=== PATIENT | male | born 1975 | race Caucasian/White ===

== ENCOUNTER 2018-09-06 10:48 | Day surgery (SDC) | payer OTHER ==
[2018-09-04 14:10] VITALS: BMI 40.1
[~2018-09-06 10:48] MED LIST: LIDOCAINE 1% 20 ML VIAL (10MG/ML) FOR IV START INTRADERMA PRN
[2018-09-06] MEDS: LACTATED RINGERS 1,000 ML IV SCH ×2 (11:43→13:03)
[2018-09-06 11:52] VITALS: TEMP 97.2
[2018-09-06] MEDS ORDERED: LIDOCAINE 1% INJ 10MG/ML (20 ML MDV) ONE (13:05)
[2018-09-06] MEDS ORDERED: PROPOFOL 10 MG/ML 20 ML VIAL IV ONE (13:05)
[2018-09-06 14:01] VITALS: BP 132/86; PULSE 65; RESP 16
--- NOTE | 2018-09-07 06:11 | PCN ---
PROCEDURE NOTE DATE OF SERVICE: 09/06/2018 PROCEDURE: Total colonoscopy. PREOPERATIVE DIAGNOSIS: Screening for neoplasia. POSTOPERATIVE DIAGNOSIS: Exam within normal limits. PREPARATION: Half Lightly prep. SEDATION: Sedation was provided by Anesthesia. BRIEF CLINICAL HISTORY: The patient is a 43-year-old male who is scheduled for this evaluation for screening for neoplasia because of family history of colon cancer in his sister who is 10 years older than him who developed cancer at age 52. The patient has no abdominal complaints, bleeding or anemia. This will be his first colonoscopy. PROCEDURE: With the patient on his left lateral decubitus position and after informed consent and adequate sedation, the perianal area was inspected and it did not show any fissures or fistulas. There were no masses felt on digital rectal examination. The Olympus CF- H190L video colonoscope was then inserted in the rectum in the usual fashion and advanced to the cecum. The mucosa appeared healthy. There was no obvious polyps or tumors or any obvious diverticular disease. I retroflexed the endoscope in the rectum before the endoscope was withdrawn. The patient tolerated the procedure well. PLAN: The patient was reassured. He will follow up with you as planned and I recommended repeat exam in 5 years. MMODL / IJN: [id number] /
== END 2018-09-06 14:03 | disposition home or self-care (01) ==
LOC: ORWHC2ENDO 10:48
DX: Z12.11 Encounter for screening for malignant neoplasm of colon (principal); Z80.0 Family history of malignant neoplasm of digestive organs; E78.5 Hyperlipidemia, unspecified; Z79.1 Long term (current) use of non-steroidal anti-inflammatories (NSAID)
CPT/HCPCS: J2001; J2704; G0105

== ENCOUNTER 2023-07-19 09:50 | Day surgery (SDC) | payer OTHER ==
[2023-07-17 12:01] VITALS: BMI 36.9
[2023-07-19 10:34] VITALS: RESP 16; TEMP 97.2
[2023-07-19] MEDS: LIDOCAINE 1% (10MG/ML) FOR IV START INTRADERMA ONE (10:40)
[2023-07-19] MEDS: LACTATED RINGERS 1,000 ML IV ONE (10:40)
[2023-07-19] MEDS ORDERED: PROPOFOL 10 MG/ML 20 ML VIAL IV ONE (11:32)
--- NOTE | 2023-07-19 11:46 | P.PCN ---
Date of Procedure: 07/19/23 Procedure(s) Performed: BRIEF HISTORY: Patient is a 49-year-old pleasant white male scheduled for an elective colonoscopy as a part of screening for colon cancer and family history of colon cancer. Sister was diagnosed with colon cancer at age 51. PROCEDURE PERFORMED: Colonoscopy. PREOPERATIVE DIAGNOSIS: Screening for colon cancer and family history of colon. IV sedation per Anesthesia. PROCEDURE: After informed consent was obtained, the patient, was brought into the endoscopy unit. IV sedation was administered by Anesthesia under continuous monitoring. Digital rectal examination was normal. Initially the Olympus CF-160 flexible video colonoscope was then inserted in the rectum, gradually advanced into the cecum without any difficulty. Careful examination was performed as the scope was gradually being withdrawn. Ileocecal valve and the appendiceal orifice were visualized and appeared normal. Prep was excellent. Mucosa of the cecum, ascending colon, transverse colon, descending colon, sigmoid colon, and rectum appeared normal. Retroflexion was performed in the rectum and no lesions were seen. The patient tolerated the procedure well. IMPRESSION: Normal-appearing colon from rectum to cecum with no evidence of colorectal neoplasia. RECOMMENDATIONS: Findings of this examination were discussed with the patient as well as his family. He was advised to have a repeat screening colonoscopy in 5 years because of the family history of colon cancer.
[2023-07-19 12:00] VITALS: BP 118/71; PULSE 64
== END 2023-07-19 12:14 | disposition home or self-care (01) ==
LOC: ORWHC2ENDO 09:50
PROVIDERS: ATTEND Internal Medicine Gastroenterology
DX: Z12.11 Encounter for screening for malignant neoplasm of colon (principal); E78.5 Hyperlipidemia, unspecified; Z80.0 Family history of malignant neoplasm of digestive organs; Z79.899 Other long term (current) drug therapy; Z98.890 Other specified postprocedural states
CPT/HCPCS: 45378; J2704